=== PATIENT | female | born 1945 | race Caucasian/White ===

== ENCOUNTER 2016-12-18 09:24 | Day surgery (SDC) | payer OTHER ==
[2016-12-17 11:20] VITALS: BMI 46.0
[~2016-12-18] VITALS: Ht 154.9 cm; Wt 111.4 kg
[~2016-12-18 09:24] MED LIST: ACET1TAB84 PO; ATV/1 PO; BENZ1CAP90 PO; CEFAZOLIN 2000 MG/60 ML D5W IV SCH; CHOL1000 PO; DULO60CA44 PO; FERRTAB18 PO; FOLI1TAB7 PO; HYDR-389 PO; HYDR5SYP11 PO; LACTATED RINGER'S 1000ML 1,000 ML IV SCH; LOSA1TAB PO; MULT-506 PO; ONDA8TAB6 PO; PRED-301 PO; PRLSR20 PO; SUCR1TAB29 PO; VNTHFA/IN INH
[2016-12-18 09:55] VITALS: BP 183/88; PULSE 85; TEMP 36.8; O2SAT 92; Ht 154.9 cm; Wt 111.4 kg
[2016-12-18 10:17] LABS: MEAN CELL VOLUME 95.2 fL (80-100); MEAN CORPUSCULAR HEMOGLOBIN 30.4 pg (25-34); MEAN PLATELET VOLUME 8.4 fL (7.4-10.4); PLATELET COUNT 197 K/uL (130-400); RED BLOOD COUNT 3.78 M/uL (4.2-5.4); WHITE BLOOD COUNT 6.57 K/uL (4.8-10.8)
[2016-12-18 10:19] LABS: MEAN CORPUSCULAR HGB CONC 31.9 g/dl (32-36)
[2016-12-18] MEDS ORDERED: FENTANYL CITRATE INJ 50 MCG/1 ML 2 ML VIAL ONE ×2 (10:30→12:53)
[2016-12-18] MEDS ORDERED: MIDAZOLAM HCL 1 MG/ML 2ML VIAL ONE (10:30)
--- NOTE | 2016-12-18 11:06 | History & Physical Bridge Note ---
H&P Re-Evaluation Bridge Note: I have examined the patient, reviewed the History & Physical and in the interval since the performance of the History & Physical I have noted the following changes of clinical significance: No changes noted
[2016-12-18] MEDS ORDERED: LIDOCAINE HCL 1% 20 ML VIAL ONE (11:23)
[2016-12-18] MEDS ORDERED: ONDANSETRON INJ 2 MG/ML 2 ML VIAL ONE (12:06)
[2016-12-18] MEDS ORDERED: PROPOFOL IV EMULSION 10 MG/ML 20 ML VIAL IV ONE (12:06)
[2016-12-18] MEDS ORDERED: LIDOCAINE HCL 2% 2 ML VIAL (20MG/ML) ONE (12:06)
[2016-12-18] MEDS ORDERED: ATROPINE SULFATE 0.1 MG/ML 5ML SYR IV PRN (12:45)
[2016-12-18] MEDS ORDERED: EpHEDrine SULFATE INJ 50 MG/ML AMP IV PRN (12:45)
[2016-12-18] MEDS ORDERED: SODIUM CHLORIDE 0.9% 1000ML 1,000 ML IV SCH (13:03)
--- NOTE | 2016-12-18 13:03 | [facility] Post Operative Brief Note ---
Immediate Operative Summary Operative Date December 18, 2016. Pre-Operative Diagnosis Left temporal Pain Post-Operative Diagnosis Left Temporal Pain Procedure(s) Performed Left Temporal Artery Biopsy Surgeon Dr. Parekh Assembler Carbon Brushes Surgeon(s) None Estimated Blood Loss 5 ML Findings normal finding on left temporal artery, patent Specimens A: Left Temporal Artery Biopsy Drains none Anesthesia sedation + local Complication(s) None Disposition Recovery Room / PACU
--- NOTE | 2016-12-18 13:10 | Discharge Instructions ---
Discharge Instructions Date of Service December 18, 2016. Visit Reason for Visit: Trigeminal Neuralgia Discharge Discharge Diagnosis / Problem: S/P left temporal artery biopsy Discharge Goals Goal(s): Decrease discomfort, Improve nutritional status Activity Recommendations Activity Limitations: per Instructions/Follow-up section Lifting Limitations: none Exercise/Sports Limitations: gradually increase as tolerated May Resume Sexual Activity: when tolerated Anesthesia . Post Anesthesia Instructions: If you have had General Anesthesia or IV Sedation: * Do not drive today. * Resume driving when surgeon permits. * Do not make important decisions or sign legal documents today. * Call surgeon for: 1. Temperature elevations greater than 101 degrees F. 2. Uncontrollable pain. 3. Excessive bleeding. 4. Persistent nausea and vomiting. 5. Medication intolerance (nausea, vomiting or rash). * For nausea and vomiting use only clear liquids such as: tea, soda, bouillon until nausea subsides, then gradually increase diet as tolerated. * If you have any concerns or questions, call your surgeon's office. If physician is unavailable and it is an emergency, call 911 or go to the nearest emergency room. . Instructions / Follow-Up Instructions / Follow-Up keep the dressing on for 4 days, she can take a shower on 12/22/2016, take tylenol 650 mg po q6 h prn for pain only 3 days, Follow up 1 week, Diet Recommendations Recommended Home Diet: resume previous diet Procedures Procedures Performed: Left Temporal Artery Biopsy Pending Studies Studies pending at discharge: no Medical Emergencies . Who to Call and When: Medical Emergencies: If at any time you feel your situation is an emergency, please call 911 immediately. . Non-Emergent Contact Non-Emergency issues call your: Surgeon Call Non-Emergent contact if: you have a fever, temperature is above 100.5, your pain is not controlled, your pain is worsening, wound has increased drainage, wound has increased redness . . "Provider Documentation" section prepared by Geremias Parekh. . [place] Drug Monitoring Program Search Results: no issues identified
[2016-12-18] MEDS ORDERED: IBUPROFEN 600 MG TAB PO PRN (13:15)
[2016-12-18] MEDS ORDERED: MoRPHine SULFATE 2 MG/ML CARP IV PRN (13:15)
[2016-12-18] MEDS ORDERED: HYDROCODONE/ACETAMOPHEN 5/325MG TAB PO PRN (13:15)
[2016-12-18 13:40] VITALS: BP 127/72; PULSE 81; TEMP 36.8; O2SAT 95
--- NOTE | 2016-12-18 13:54 | Anesthesiology Progress Note ---
Anesthesia Post Op Note Date & Time December 18, 2016 at 13:54 Vital Signs Pain Intensity: 2 Vital Signs Past 12 Hours Date Time Temp Pulse Resp B/P Pulse Ox O2 Delivery O2 Flow Rate FiO2 12/18/16 13:40 36.8 81 18 127/72 95 Room Air 0 12/18/16 13:25 36.0 81 17 139/86 97 Nasal Cannula 2 12/18/16 13:15 77 14 146/86 97 Nasal Cannula 2 12/18/16 13:05 80 18 146/89 96 Nasal Cannula 2 12/18/16 12:55 81 19 138/83 91 Nasal Cannula 2 12/18/16 12:46 36.2 87 16 151/98 93 Nasal Cannula 2 12/18/16 09:55 36.8 85 20 183/88 92 Room Air Notes Mental Status: alert / awake / arousable, participated in evaluation Pt Amnestic to Procedure: Yes Nausea / Vomiting: adequately controlled Pain: adequately controlled Airway Patency, RR, SpO2: stable & adequate BP & HR: stable & adequate Hydration State: stable & adequate Anesthetic Complications: no major complications apparent
[2016-12-18 14:10] VITALS: BP 129/74; PULSE 78; TEMP 36.6; O2SAT 94
--- NOTE | 2016-12-18 14:21 | OPERATIVE REPORT ---
DATE OF OPERATION: 12/18/2016 PREOPERATIVE DIAGNOSIS: Left temporal pain. POSTOPERATIVE DIAGNOSIS: Same. PROCEDURE: Left temporal arterial biopsy. SURGEON: Dr. Geremias Parekh. ANESTHESIA: Conscious sedation plus local. FINDINGS: Normal finding on temporal artery. ESTIMATED BLOOD LOSS: About 5 mL. COMPLICATIONS: None. INDICATIONS FOR THE PROCEDURE: This is a 71-year-old female who presented left temporal pain and wanted to rule out arteritis. The patient will be required to do a left temporal artery biopsy. I did talk to the patient about the benefit and risk, alternate procedure. I indicated the risks may include but not limited such as bleeding, infection, hematoma, even . The patient understands. She signed informed consent and I answered all questions. DETAILS OF PROCEDURE: We brought the patient to the OR, put the patient in the supine position. The patient received conscious sedation by the anesthesiology. I used the Doppler for mapping the left temporal artery. Then the left temporal arterial area was prepped and draped in routine sterile fashion. Also, the patient received 2 grams Ancef IV for prophylactic antibiotic. After time out, I made around 2 cm incision on the mapping left temporal artery and then we found the temporal artery. Then we used 4-0 Vicryl tied temporal artery on both sides and try to get 1 cm specimen, rechecked and no active bleeding and then used 4-0 Vicryl, closed subcutaneous layer, interrupted and closed skin by using 4-0 Vicryl. Then we put the dressing on. The patient tolerated the procedure well. After the procedure, the patient transferred to recovery room in stable condition. All the instrument, needle and sponge count correct x2 at the end of case. The specimen sent to pathology. I attest to the content of the Intraoperative Record and any orders documented therein. Any exceptions are noted below. LULU
[2016-12-19] MEDS ORDERED: CEFAZOLIN IV 2,000 MG/60 ML D5W IV ONE (06:00)
== END 2016-12-18 14:20 | disposition home or self-care (01) ==
LOC: C.ACU 09:24
PROVIDERS: ATTEND Surgery
DX: R51 Headache (principal); N18.3 Chronic kidney disease, stage 3 (moderate); I12.9 Hypertensive chronic kidney disease with stage 1 through stage 4 chronic kidney disease, or unspecified chronic kidney disease; M79.7 Fibromyalgia; J44.9 Chronic obstructive pulmonary disease, unspecified; Z96.641 Presence of right artificial hip joint; Z90.12 Acquired absence of left breast and nipple; Z88.5 Allergy status to narcotic agent; Z98.890 Other specified postprocedural states; Z87.891 Personal history of nicotine dependence; Z85.3 Personal history of malignant neoplasm of breast; Z86.73 Personal history of transient ischemic attack (TIA), and cerebral infarction without residual deficits; E66.01 Morbid (severe) obesity due to excess calories; Z68.42 Body mass index [BMI] 45.0-49.9, adult; Z80.49 Family history of malignant neoplasm of other genital organs; Z83.49 Family history of other endocrine, nutritional and metabolic diseases; Z80.0 Family history of malignant neoplasm of digestive organs